=== PATIENT | male | born 1945 | race Caucasian/White ===

== ENCOUNTER 2017-05-21 10:41 | Emergency (ER) | payer OTHER ==
[~2017-05-21] VITALS: Ht 180.3 cm; Wt 87.0 kg
[~2017-05-21 10:41] MED LIST: IBUPROFEN; METFORMIN500 M2 PO; PENTOXIFYLLI400 M1 PO; SOLU-MEDROL125 MG IM; VIAGRA100 MG; VIGAMOX OD; [UNRECOGNIZED DRUG - OTHER]; cholesterol med
[2017-05-21 12:00] VITALS: BP 118/73
== END 2017-05-21 12:00 | disposition home or self-care (01) | DRG 605 ==
LOC: ED 10:41
DX: S80.812A Abrasion, left lower leg, initial encounter (principal); E11.9 Type 2 diabetes mellitus without complications; E78.5 Hyperlipidemia, unspecified; W26.8XXA Contact with other sharp object(s), not elsewhere classified, initial encounter; Y92.512 Supermarket, store or market as the place of occurrence of the external cause; Z86.718 Personal history of other venous thrombosis and embolism